=== PATIENT | male | born 1960 | race African-American/Black ===

== ENCOUNTER 2018-09-06 05:55 | Day surgery (SDC) | payer OTHER ==
[2018-08-31 11:56] VITALS: BMI 35.5
--- NOTE | 2018-09-06 06:52 | HP ---
History & Physical Update - History History: No Change - Physical Physical: No Change - Assessment Assessment: No Change - Plan Plan: No Change (Initial H&P was completed on 08/27/18. In his paper chart. No new complaints or medications. Here today for ACDF C3/4)
[2018-09-06] MEDS: oxyCODONE HCL 10 MG SUSTAINED ACTING TABLET PO STA ×2 (07:05→13:56)
[2018-09-06] MEDS ORDERED: GELATIN, ABSORBABLE 100 EACH SPONGE TP ONE (07:23)
[2018-09-06] MEDS ORDERED: THROMBIN (RECOMBINANT) 5,000 UNIT VIAL TP ONE (07:23)
[2018-09-06] MEDS ORDERED: LIDOCAINE 1%/EPI 1:100000 (20 ML MULTI DOSE VIAL) ONE (07:23)
[2018-09-06] MEDS ORDERED: GUM MASTIC/STORAX/MSAL/ALCOHOL 1 DRP DROPSBTL MC ONE (07:24)
[2018-09-06] MEDS ORDERED: GABAPENTIN 300 MG CAPSULE (FP) ONE (07:24)
[2018-09-06] MEDS: GABAPENTIN 300 MG CAPSULE (FP) PO STA ×2 (07:25→13:55)
[2018-09-06] MEDS ORDERED: SUCCINYLCHOLINE CHLORIDE 200 MG/10 ML VIAL ONE (07:45)
[2018-09-06] MEDS ORDERED: PROPOFOL 20 ML ONE ×9 (07:45→09:35)
[2018-09-06] MEDS ORDERED: DEXAMETHASONE SOD PHOSPHATE 4 MG/1 ML VIAL ONE (07:45)
[2018-09-06] MEDS ORDERED: fentaNYL CITRATE 250 MCG/5 ML VIAL ONE ×2 (07:45→08:55)
[2018-09-06] MEDS ORDERED: ONDANSETRON 4 MG/2 ML VIAL ONE ×2 (07:45→12:26)
[2018-09-06] MEDS ORDERED: LIDOCAINE HCL/PF 2% SDV 5ML VIAL ONE (07:45)
[2018-09-06] MEDS ORDERED: MIDAZOLAM HCL 2 MG/2 ML SINGLE DOSE VIAL ONE ×2 (08:04→08:15)
[2018-09-06] MEDS ORDERED: DEXAMETHASONE SOD PHOSPHATE/PF 10 MG/ML SDV ONE (08:04)
[2018-09-06] MEDS ORDERED: ROPIVACAINE HCL 0.5% 30ML VIAL ONE (08:04)
[2018-09-06] MEDS ORDERED: DESFLURANE GAS 240 ML BOTTLE IH ONE (08:59)
[2018-09-06] MEDS ORDERED: ePHEDrine SULFATE 50 MG/1 ML AMPULE ONE (09:18)
[2018-09-06] MEDS ORDERED: THROMBIN (BOVINE) 5,000 UNIT VIAL TP ONE (09:32)
[2018-09-06] MEDS ORDERED: oxyCODONE HCL 5 MG TABLET PO PRN (11:01)
[2018-09-06] MEDS ORDERED: diphenhydrAMINE HCL 25 MG CAPSULE (FP) PO PRN (11:01)
[2018-09-06] MEDS ORDERED: morphine SULFATE 4 MG/ML VIAL IVPUSH PRN (11:01)
[2018-09-06] MEDS ORDERED: ONDANSETRON 4 MG/2 ML VIAL IVPUSH PRN (11:01)
--- NOTE | 2018-09-06 11:01 | OP ---
Operative Note - Note: Operative Date: 09/06/18 Pre-Operative Diagnosis: Cervical stenosis, disc herniation at C3/4 Operation: C3/4 ACDF, allograft implant, neuromonitoring Post-Operative Diagnosis: Same as Pre-op Surgeon: Leroy Garcia Global Climate Change Analyst: Bryan Reyes Anesthesiologist/DEBEADER: Isi Pyle Anesthesia: General Specimens Removed: C3/4 disc Estimated Blood Loss (mls): 20 Fluid Volume Replaced (mls): 1,200 Operative Report Dictated: Yes
[2018-09-06] MEDS ORDERED: diazePAM 5 MG TABLET PO PRN (11:05)
[2018-09-06] MEDS ORDERED: HEPARIN NA (PORCINE) 5,000 UNITS/ML 1ML VIAL SQ SCH (11:15)
[2018-09-06] MEDS ORDERED: LACTATED RINGERS SOLUTION 1,000 ML/1,000 ML INFUS.BAG IV SCH (11:15)
[2018-09-06] MEDS: DOCUSATE SODIUM 100 MG CAPSULE (FP) PO SCH ×2 (15:00→21:09)
[2018-09-06] MEDS: DEXAMETHASONE SOD PHOSPHATE 4 MG/1 ML VIAL IVPUSH SCH ×2 (16:00→21:10)
[2018-09-06] MEDS ORDERED: PT OWN MED DRAWER 7, Y5N ONE (17:17)
[2018-09-06] MEDS: CEFAZOLIN 1 GM/D5W 1 GM/50 ML BAG IVPB SCH (17:20)
[2018-09-06] MEDS: oxyCODONE HCL 5 MG TABLET PO PRN (18:09)
[2018-09-06] MEDS: HEPARIN NA (PORCINE) 5,000 UNITS/ML 1ML VIAL SQ SCH (18:12)
[2018-09-06] MEDS ORDERED: ROSUVASTATIN CA 10 MG TABLET (FP) PO SCH (22:00)
[2018-09-07] MEDS: CEFAZOLIN 1 GM/D5W 1 GM/50 ML BAG IVPB SCH ×2 (01:00→10:18)
[2018-09-07] MEDS: HEPARIN NA (PORCINE) 5,000 UNITS/ML 1ML VIAL SQ SCH ×2 (03:00→10:30)
[2018-09-07] MEDS: DEXAMETHASONE SOD PHOSPHATE 4 MG/1 ML VIAL IVPUSH SCH ×2 (03:00→10:10)
[2018-09-07] MEDS: oxyCODONE HCL 5 MG TABLET PO PRN ×2 (04:58→10:11)
[2018-09-07] MEDS: DOCUSATE SODIUM 100 MG CAPSULE (FP) PO SCH (04:59)
[2018-09-07 06:32] VITALS: TEMP 98.6
[2018-09-07 07:59] LABS: HEMATOCRIT 45.8 % (35.4-49); HEMOGLOBIN 14.9 GM/dl (11.7-16.9); MCH 30.6 pg (25.7-33.7); MCHC 32.5 g/dl (32.0-35.9); MEAN CELL VOLUME 94.1 fl (80-96); MEAN PLT VOLUME 8.4 fl (7.5-11.1); PLATELET COUNT 288 K/MM3 (134-434); RBC 4.88 M/mm3 (4.00-5.60); RDW 12.5 % (11.9-15.9); WHITE BLOOD COUNT 20.1 K/mm3 (4.0-10.8)
[2018-09-07 08:03] LABS: ANION GAP 9 MMOL/L (8-16); BLOOD UREA NITROGEN 13 mg/dl (7-18); CALCIUM 9.1 mg/dl (8.5-10); CHLORIDE 104 mmol/L (98-107); CO2 24 mmol/L (21-32); CREATININE 1.1 mg/dl (0.55-1.3); GLUCOSE,RANDOM 158 mg/dl (74-106); POTASSIUM 3.9 mmol/L (3.5-5.1); SODIUM 137 mmol/L (136-145)
--- NOTE | 2018-09-07 09:00 | OP ---
DATE OF OPERATION: 09/06/2018 PREOPERATIVE DIAGNOSIS: Cervical stenosis, C3-4. POSTOPERATIVE DIAGNOSIS: Cervical stenosis, C3-4. PROCEDURE: 1. Anterior cervical diskectomy and fusion, C3-4. 2. Placement of instrumentation, C3-4. SURGEON: Leroy Garcia MD LOAD MANAGER: RYAN Saucedo ESTIMATED BLOOD LOSS: 50 mL. INTRAVENOUS FLUIDS: Per Anesthesia. ANESTHESIA: General/MCP block. COMPLICATIONS: None. DISPOSITION: Patient brought to the PACU in stable condition. INDICATIONS FOR SURGERY: The patient is a 58-year-old gentleman who has been suffering from pain from his neck down his arms as well as numbness and tingling. X-rays and MRI were completed which show that he had cervical stenosis at C3-4. He had gone through an exhaustive course of treatment for this which included medications, physical therapy as well as injections. Unfortunately, his pain continued to persist despite all of this. At this point, the risks, benefits and alternatives were discussed and the patient consented to surgery. DESCRIPTION OF PROCEDURE: The patient was brought to the operating room by the anesthesia staff. After appropriate patient identification was performed, general anesthesia was given. A MCP block was also given. The patient was placed supine on the OR bed. His arms were tucked at his side. All areas of bony prominence were well padded at this time. A needle was taped onto his neck to anita off the C3-4 level. X-rays were taken to confirm the site. The needle was removed and 10 mL of lidocaine with epinephrine were injected into his neck at this time. His neck was prepped and draped in a sterile manner. At this point, timeout was completed. A 2-inch Incision was made on the left side of his neck. Dissection was carried down to the platysma. The platysma was cut in line with the skin incision. Next, the interval between the sternocleidomastoid and strap muscles was developed. The interval between the carotid sheath and the tracheoesophagus was developed. A peanut was used to elevate off the prevertebral fascia. A needle was placed into the C3-4 disk. X-ray was taken to confirm the site. The needle was removed. The longus colli muscles were elevated off. A [place] pin was placed in the body of C3 and C4. A knife was used to incise the disk and retraction was applied. The microscope was brought in. At this point, using a pituitary Kerrison curette a diskectomy was completed. Endplates were decorticated at this time. A cage filled with bone graft was placed in. [place] pins were removed. A screw was placed in the body of C3 and placed in the body of C4. AP and lateral x-rays confirmed the instrumentation to be in good position. Final tightening was performed. A drain was placed. The platysma was closed with 2-0 Vicryl suture. Skin was closed with 3-0 Monocryl suture. Tegaderm was applied. Steri-Strips were applied. Sterile dressing was applied. Patient was placed supine on the bed, extubated in the OR and brought to the PACU in stable condition. Lidia [id number] MTDD
[2018-09-07] MEDS ORDERED: PATIENT'S OWN MEDICATION (NON-FORMULARY) (Vitamin E [Vitamin E] 1,000 UNIT) PO SCH (10:00)
[2018-09-07] MEDS ORDERED: FOLIC ACID 1 MG TABLET (FP) PO SCH (10:00)
[2018-09-07] MEDS ORDERED: VITAMIN K2 40 MCG PO SCH (10:00)
[2018-09-07] MEDS ORDERED: VITAMIN A 8000 UNIT PO SCH (10:00)
[2018-09-07] MEDS ORDERED: UBIDECARENONE 30 MG PO SCH (10:00)
--- NOTE | 2018-09-07 10:03 | PN ---
Progress Note (short form) - Note Progress Note: Post op day#1.S/P C3-C4 Disectomy with fusion under Ga with C4 TLIP block uneventful.Patient stable and has pain score of 2-3/10.No any anesthesia related problem.Patient Dc from the anesthesia care.
[2018-09-07 14:08] VITALS: BP 157/84; PULSE 66
--- NOTE | 2018-09-07 17:52 | PATH ---
Surgical Pathology Report Patient Name: GENTRY MURO [facility]. Rec. #: [id number] /Age/Gender: 1960 (Age: 58) / F Account: [id number] Location: [facility] [place] [facility] Taken: 09/06/2018 Received: 09/06/2018 Reported: 09/07/2018 Physicians: Leroy Garcia M.D. Specimen(s) Received C3/4 DISC Clinical History Cervical stenosis Final Diagnosis C3/C4 DISC, DISCECTOMY: CARTILAGINOUS TISSUE WITH DEGENERATIVE CHANGE. Electronically Signed Michael De La Rosa M.D. Gross Description Received in formalin labeled "disc C3/4," is a 2.5 x 2.3 x 0.3 cm aggregate of ochoa fragments of fibrocartilaginous tissue. A manufacturer's representative portion is submitted in one cassette. /09/06/2018 [facility]09/06/2018
== END 2018-09-07 14:02 | disposition home or self-care (01) ==
LOC: FASU 05:55 → FASUSAT 05:55 → EDSEX 11:15 → FM/S 12:45 → FASUSAT 09-07 14:02
PROVIDERS: ATTEND Orthopaedic Surgery Orthopaedic Surgery of the Spine
PROC: 0RG10A0 Fusion of Cervical Vertebral Joint with Interbody Fusion Device, Anterior Approach, Anterior Column, Open Approach (ICD-10-PCS; 2018-09-06)
PROC: 0RG10K0 Fusion of Cervical Vertebral Joint with Nonautologous Tissue Substitute, Anterior Approach, Anterior Column, Open Approach (ICD-10-PCS; 2018-09-06)
PROC: 0RB30ZZ Excision of Cervical Vertebral Disc, Open Approach (ICD-10-PCS; principal; 2018-09-06 09:24)
DX: M48.02 Spinal stenosis, cervical region (principal)
CPT/HCPCS: 22551; 22845; 22853; C1889; 36415; 72050-TC-FY; 80048; 85027; 88304-TC; 94760; 97116-GP; 97161-GP; J1644

== ENCOUNTER 2020-08-03 07:29 | Day surgery (SDC) | payer OTHER ==
[2020-07-30 10:03] VITALS: BMI 34.8
[2020-08-03 07:56] LABS: BASO % 1.4 % (0-2.0); EOS % 4.1 % (0-4.5); HEMATOCRIT 46.5 % (35.4-49); HEMOGLOBIN 16.1 GM/dl (11.7-16.9); LYMPH % 26.1 % (8-40); MCH 32.5 pg (25.7-33.7); MCHC 34.6 g/dl (32.0-35.9); MEAN CELL VOLUME 94.1 fl (80-96); MEAN PLT VOLUME 8.3 fl (7.5-11.1); MONO % 6.7 % (3.8-10.2); NEUT % 61.7 % (42.8-82.8); PLATELET COUNT 267 K/MM3 (134-434); RBC 4.94 M/mm3 (4.00-5.60); RDW 13.1 % (11.9-15.9); WHITE BLOOD COUNT 12.2 K/mm3 (4.0-10.8)
[2020-08-03 08:29] VITALS: BP 157/101; PULSE 57; TEMP 98.2
[2020-08-03] MEDS ORDERED: BUPIVACAINE LIPOSOME/PF (EXPAREL) 266 MG/20 ML VIAL ONE (08:45)
[2020-08-03] MEDS ORDERED: MIDAZOLAM HCL 2 MG/2 ML SINGLE DOSE VIAL ONE (08:45)
[2020-08-03] MEDS ORDERED: SODIUM CHLORIDE 0.9% P/F 10 ML VIAL IJ ONE (08:45)
== END 2020-08-03 08:35 | disposition home or self-care (01) ==
LOC: FASUSAT 07:29 → UNDOADMIN 07:29 → FM/S 07:29 → UNDODISIN 08:35 → FASUSAT 08:35 → EDSTATUS 09:30 → FASUSAT 12:45
PROVIDERS: ATTEND Orthopaedic Surgery Sports Medicine
DX: Z53.8 Procedure and treatment not carried out for other reasons (principal)
CPT/HCPCS: 36415; 85025

== ENCOUNTER 2020-08-17 05:57 | Inpatient (IN) | payer OTHER ==
[2020-08-11 12:57] VITALS: BMI 34.8
[2020-08-17] MEDS ORDERED: SODIUM CHLORIDE 0.9% P/F 10 ML VIAL IJ ONE (06:47)
[2020-08-17] MEDS ORDERED: MIDAZOLAM HCL 2 MG/2 ML SINGLE DOSE VIAL ONE ×4 (06:47→09:08)
[2020-08-17] MEDS ORDERED: BUPIVACAINE LIPOSOME/PF (EXPAREL) 266 MG/20 ML VIAL ONE (06:47)
[2020-08-17] MEDS ORDERED: TRANEXAMIC ACID 1000 MG/10 ML VIAL ONE (07:32)
[2020-08-17] MEDS ORDERED: ATROPINE SULFATE 1 MG/10 ML DISP.SYRIN ONE (07:33)
[2020-08-17] MEDS ORDERED: SUCCINYLCHOLINE CHLORIDE 200 MG/10 ML SYRINGE ONE (07:34)
[2020-08-17] MEDS ORDERED: EPHEDRINE SULFATE/0.9% NACL/PF 50 MG/10 ML SYRINGE NR ONE (07:34)
[2020-08-17] MEDS ORDERED: PROPOFOL 20 ML ONE ×3 (07:34→08:54)
[2020-08-17] MEDS ORDERED: VANCOMYCIN 1,000 MG VIAL (RESTRICTED TO ID ONLY) ONE (07:48)
[2020-08-17] MEDS ORDERED: ONDANSETRON 4 MG/2 ML VIAL IVPUSH PRN ×2 (10:28→14:53)
[2020-08-17] MEDS ORDERED: oxyCODONE HCL 5 MG TABLET PO PRN (10:28)
[2020-08-17] MEDS ORDERED: BUPIVICAINE 0.25%/MORPH PF/KETOROLAC - 51ML DISP.SYRINGE IA ONE (10:44)
[2020-08-17] MEDS: oxyCODONE HCL 5 MG TABLET PO PRN ×2 (14:33→21:19)
[2020-08-17] MEDS ORDERED: MAG HYDROX/AL HYDROX/SIMETH 30 ML UNIT-DOSE CUP PO PRN (14:53)
[2020-08-17] MEDS ORDERED: LACTATED RINGERS SOLUTION 1,000 ML IV SCH (15:00)
[2020-08-17] MEDS: CEFAZOLIN 2 GM/D5W 2 GM/50 ML ML IVPB SCH (16:15)
[2020-08-17] MEDS: INSULIN SLIDING SCALE (NOVOLOG) 1 VIAL SQ SCH ×2 (16:50→22:32)
[2020-08-17] MEDS: GABAPENTIN 300 MG CAPSULE PO SCH (21:19)
[2020-08-17] MEDS: ROSUVASTATIN CA 10 MG TABLET (FP) PO SCH (21:19)
[2020-08-17] MEDS: oxyCODONE HCL 10 MG SUSTAINED ACTING TABLET PO SCH (21:20)
[2020-08-17] MEDS: SENNOSIDES/DOCUSATE COMBO (SENNA PLUS) TABLET (UD) PO SCH (21:20)
[2020-08-18] MEDS: CEFAZOLIN 2 GM/D5W 2 GM/50 ML ML IVPB SCH ×2 (01:00→09:10)
[2020-08-18] MEDS: oxyCODONE HCL 5 MG TABLET PO PRN ×4 (04:33→21:21)
[2020-08-18] MEDS: INSULIN SLIDING SCALE (NOVOLOG) 1 VIAL SQ SCH ×4 (08:00→22:42)
[2020-08-18 08:24] LABS: BASO % 1.4 % (0-2.0); EOS % 0.1 % (0-4.5); HEMATOCRIT 39.7 % (35.4-49); HEMOGLOBIN 12.8 GM/dl (11.7-16.9); MCH 30.8 pg (25.7-33.7); MCHC 32.2 g/dl (32.0-35.9); MEAN CELL VOLUME 95.5 fl (80-96); MEAN PLT VOLUME 8.7 fl (7.5-11.1); MONO % 6.8 % (3.8-10.2); NEUT % 76.7 % (42.8-82.8); PLATELET COUNT 254 K/MM3 (134-434); RBC 4.16 M/mm3 (4.00-5.60); RDW 13.4 % (11.9-15.9); WHITE BLOOD COUNT 15.3 K/mm3 (4.0-10.8)
[2020-08-18 08:35] LABS: ALBUMIN 3.4 g/dl (3.4-5.0); BILIRUBIN,TOTAL 0.6 mg/dl (0.2-1); CALCIUM 8.6 mg/dl (8.5-10); MAGNESIUM 1.9 mg/dL (1.8-2.4); POTASSIUM 4.1 mmol/L (3.5-5.1)
[2020-08-18] MEDS ORDERED: KETOROLAC TROMETHAMINE 30 MG/1 ML VIAL IVPUSH ONE (08:45)
[2020-08-18] MEDS: MULTIVITAMINS (DAILY MVI) TABLET (FP) PO SCH (09:17)
[2020-08-18] MEDS: oxyCODONE HCL 10 MG SUSTAINED ACTING TABLET PO SCH ×2 (09:18→21:20)
[2020-08-18] MEDS: PANTOPRAZOLE 40 MG TABLET PO SCH (09:19)
[2020-08-18] MEDS: GABAPENTIN 300 MG CAPSULE PO SCH ×2 (09:19→21:20)
[2020-08-18] MEDS: ASPIRIN 325 MG TABLET PO SCH ×2 (09:20→21:20)
[2020-08-18] MEDS: SENNOSIDES/DOCUSATE COMBO (SENNA PLUS) TABLET (UD) PO SCH ×2 (09:20→21:20)
[2020-08-18] MEDS: ROSUVASTATIN CA 10 MG TABLET (FP) PO SCH (21:22)
[2020-08-19] MEDS: oxyCODONE HCL 5 MG TABLET PO PRN ×2 (05:59→15:14)
[2020-08-19] MEDS: INSULIN SLIDING SCALE (NOVOLOG) 1 VIAL SQ SCH ×2 (06:00→11:56)
[2020-08-19] MEDS: ASPIRIN 325 MG TABLET PO SCH (09:19)
[2020-08-19] MEDS: GABAPENTIN 300 MG CAPSULE PO SCH (09:19)
[2020-08-19] MEDS: MULTIVITAMINS (DAILY MVI) TABLET (FP) PO SCH (09:19)
[2020-08-19] MEDS: SENNOSIDES/DOCUSATE COMBO (SENNA PLUS) TABLET (UD) PO SCH (09:19)
[2020-08-19] MEDS: oxyCODONE HCL 10 MG SUSTAINED ACTING TABLET PO SCH (09:20)
[2020-08-19] MEDS: PANTOPRAZOLE 40 MG TABLET PO SCH (09:30)
[2020-08-19 14:18] VITALS: BP 113/54; PULSE 87; TEMP 98.9
== END 2020-08-19 15:53 | disposition home or self-care (01) | DRG 470 ==
LOC: FM/S 05:57
PROVIDERS: ADMIT Orthopaedic Surgery Sports Medicine; ATTEND Nurse Practitioner Acute Care
PROC: 8E0Y0CZ Robotic Assisted Procedure of Lower Extremity, Open Approach (ICD-10-PCS; 2020-08-17)
PROC: 0SRC0JZ Replacement of Right Knee Joint with Synthetic Substitute, Open Approach (ICD-10-PCS; principal; 2020-08-17 08:43)
DX: M17.11 Unilateral primary osteoarthritis, right knee (principal); I10 Essential (primary) hypertension; E78.5 Hyperlipidemia, unspecified; E11.9 Type 2 diabetes mellitus without complications
CPT/HCPCS: 36415; 73560-TC-RT-FY; 80048; 80053; 82962; 83735; 85025; 94760; 97010-GP; 97116-GP; 97162-GP

== ENCOUNTER 2020-12-21 05:59 | Inpatient (IN) | payer OTHER ==
[2020-12-17 11:50] VITALS: BMI 35.6
[~2020-12-21 05:59] MED LIST: BUPIVICAINE 0.25%/MORPH PF/KETOROLAC - 51ML DISP.SYRINGE IA ONE; VANCOMYCIN 1,000 MG VIAL (RESTRICTED TO ID ONLY) IVPB ONE
[2020-12-21] MEDS ORDERED: fentaNYL CITRATE 250 MCG/5 ML VIAL ONE (07:15)
[2020-12-21] MEDS ORDERED: PROPOFOL 20 ML ONE ×7 (07:16→09:27)
[2020-12-21] MEDS ORDERED: BUPIVACAINE HCL 50 ML ONE (07:22)
[2020-12-21] MEDS ORDERED: VANCOMYCIN 1,000 MG VIAL (RESTRICTED TO ID ONLY) ONE ×2 (07:25→08:25)
[2020-12-21] MEDS ORDERED: MIDAZOLAM HCL 2 MG/2 ML SINGLE DOSE VIAL ONE ×3 (07:34→08:11)
[2020-12-21] MEDS ORDERED: ROPIVACAINE HCL 0.5% 30ML VIAL ONE (07:34)
[2020-12-21] MEDS ORDERED: SODIUM CHLORIDE 0.9% P/F 10 ML VIAL IJ ONE (07:42)
[2020-12-21] MEDS ORDERED: BUPIVACAINE HCL/PF 0.5% (5 MG/ML) 30 ML VIAL IJ ONE (07:42)
[2020-12-21] MEDS ORDERED: BUPIVACAINE LIPOSOME/PF (EXPAREL) 266 MG/20 ML VIAL ONE (07:42)
[2020-12-21] MEDS ORDERED: ePHEDrine SULFATE 50 MG/1 ML AMPULE ONE ×2 (08:25→08:52)
[2020-12-21] MEDS ORDERED: TRANEXAMIC ACID 1000 MG/10 ML VIAL ONE ×2 (08:25→10:28)
[2020-12-21] MEDS ORDERED: ceFAZolin SODIUM 1 GM VIAL ONE (08:25)
[2020-12-21] MEDS ORDERED: BUPIVICAINE 0.25%/MORPH PF/KETOROLAC - 51ML DISP.SYRINGE IA ONE ×2 (10:30→11:00)
[2020-12-21] MEDS ORDERED: VANCOMYCIN 1,000 MG VIAL (RESTRICTED TO ID ONLY) IVPB ONE (10:31)
[2020-12-21] MEDS ORDERED: ONDANSETRON 4 MG/2 ML VIAL ONE (11:05)
[2020-12-21] MEDS ORDERED: MAG HYDROX/AL HYDROX/SIMETH 30 ML UNIT-DOSE CUP PO PRN (11:26)
[2020-12-21] MEDS ORDERED: ONDANSETRON 4 MG/2 ML VIAL IVPUSH PRN ×2 (11:26→11:48)
[2020-12-21] MEDS ORDERED: LACTATED RINGERS SOLUTION 1,000 ML IV SCH ×2 (11:30→12:00)
[2020-12-21] MEDS ORDERED: ACETAMINOPHEN 1000 MG/100 ML VIAL (NON FORMULARY) IVPB ONE (11:48)
[2020-12-21] MEDS ORDERED: traMADol HCL 50 MG TABLET PO PRN (11:48)
[2020-12-21] MEDS ORDERED: oxyCODONE HCL 5 MG TABLET PO PRN (11:48)
[2020-12-21] MEDS ORDERED: REFRIGERATED ANITBIOTICS ONE ×2 (15:29→23:44)
[2020-12-21] MEDS: oxyCODONE HCL 5 MG TABLET PO PRN ×2 (15:33→20:09)
[2020-12-21] MEDS: CEFAZOLIN 3 GM in DEXTROSE 5%-WATER - 100 ML IVPB SCH ×2 (15:35→23:51)
[2020-12-21] MEDS ORDERED: CEFAZOLIN 3 GM in DEXTROSE 5%-WATER - 100 ML IVPB SCH (16:00)
[2020-12-21] MEDS: ATORVASTATIN CA 20 MG TABLET (FP) PO SCH (21:21)
[2020-12-21] MEDS: GABAPENTIN 300 MG CAPSULE PO SCH (21:21)
[2020-12-21] MEDS: SENNOSIDES/DOCUSATE COMBO (SENNA PLUS) TABLET (UD) PO SCH (21:21)
[2020-12-22] MEDS: oxyCODONE HCL 5 MG TABLET PO PRN ×5 (02:05→18:42)
[2020-12-22] MEDS ORDERED: REFRIGERATED ANITBIOTICS ONE (08:00)
[2020-12-22] MEDS: CEFAZOLIN 3 GM in DEXTROSE 5%-WATER - 100 ML IVPB SCH (08:16)
[2020-12-22 08:30] LABS: CALCIUM 8.1 mg/dl (8.5-10); CREATININE 0.8 mg/dl (0.55-1.3)
[2020-12-22] MEDS ORDERED: KETOROLAC TROMETHAMINE 30 MG/1 ML VIAL IVPUSH PRN (08:39)
[2020-12-22] MEDS ORDERED: CYCLOBENZAPRINE HCL 10 MG TABLET (FP) PO PRN (08:42)
[2020-12-22] MEDS: ACETAMINOPHEN 325 MG TABLET (FP) PO SCH ×3 (08:46→21:25)
[2020-12-22 08:57] LABS: HEMATOCRIT 37.7 % (35.4-49); HEMOGLOBIN 12.7 GM/dl (11.7-16.9); MCHC 33.8 g/dl (32.0-35.9); MEAN CELL VOLUME 88.7 fl (80-96); MEAN PLT VOLUME 8.3 fl (7.5-11.1); PLATELET COUNT 243 10^3/uL (134-434); RBC 4.25 M/mm3 (4.00-5.60); RDW 14.9 % (11.9-15.9); WHITE BLOOD COUNT 12.2 K/mm3 (4.0-10.8)
[2020-12-22] MEDS: ASPIRIN 325 MG TABLET PO SCH ×2 (09:40→21:25)
[2020-12-22] MEDS: PANTOPRAZOLE 40 MG TABLET PO SCH (09:40)
[2020-12-22] MEDS: SENNOSIDES/DOCUSATE COMBO (SENNA PLUS) TABLET (UD) PO SCH ×2 (09:40→21:25)
[2020-12-22] MEDS: GABAPENTIN 300 MG CAPSULE PO SCH ×2 (09:40→21:25)
[2020-12-22] MEDS: MULTIVITAMINS (DAILY MVI) TABLET (FP) PO SCH (09:40)
[2020-12-22] MEDS: oxyCODONE HCL 10 MG SUSTAINED ACTING TABLET PO SCH ×2 (09:40→21:24)
[2020-12-22] MEDS ORDERED: oxyCODONE HCL 10 MG SUSTAINED ACTING TABLET PO SCH (10:00)
[2020-12-22] MEDS: ATORVASTATIN CA 20 MG TABLET (FP) PO SCH (21:24)
[2020-12-23] MEDS: ACETAMINOPHEN 325 MG TABLET (FP) PO SCH ×3 (02:08→15:00)
[2020-12-23] MEDS: oxyCODONE HCL 5 MG TABLET PO PRN ×4 (02:13→15:55)
[2020-12-23 08:51] LABS: HEMATOCRIT 35.9 % (35.4-49); HEMOGLOBIN 12.1 GM/dl (11.7-16.9); MCH 30.1 pg (25.7-33.7); MCHC 33.7 g/dl (32.0-35.9); MEAN CELL VOLUME 89.6 fl (80-96); MEAN PLT VOLUME 8.8 fl (7.5-11.1); PLATELET COUNT 217 10^3/uL (134-434); RDW 14.8 % (11.9-15.9); WHITE BLOOD COUNT 14.1 K/mm3 (4.0-10.8)
[2020-12-23] MEDS: oxyCODONE HCL 10 MG SUSTAINED ACTING TABLET PO SCH (10:13)
[2020-12-23] MEDS: ASPIRIN 325 MG TABLET PO SCH (10:13)
[2020-12-23] MEDS: GABAPENTIN 300 MG CAPSULE PO SCH (10:13)
[2020-12-23] MEDS: MULTIVITAMINS (DAILY MVI) TABLET (FP) PO SCH (10:14)
[2020-12-23] MEDS: SENNOSIDES/DOCUSATE COMBO (SENNA PLUS) TABLET (UD) PO SCH (10:14)
[2020-12-23] MEDS: PANTOPRAZOLE 40 MG TABLET PO SCH (10:14)
[2020-12-23 14:52] VITALS: BP 137/71; PULSE 102; TEMP 99.7
== END 2020-12-23 16:59 | disposition home or self-care (01) | DRG 470 ==
LOC: FM/S 05:59
PROVIDERS: ADMIT Orthopaedic Surgery Sports Medicine; ATTEND Nurse Practitioner Acute Care
PROC: 0SRD0JZ Replacement of Left Knee Joint with Synthetic Substitute, Open Approach (ICD-10-PCS; principal; 2020-12-21 08:50)
DX: M17.12 Unilateral primary osteoarthritis, left knee (principal); I10 Essential (primary) hypertension; E78.5 Hyperlipidemia, unspecified; E11.9 Type 2 diabetes mellitus without complications
CPT/HCPCS: 36415; 73560-TC-LT-FY; 80048; 85027; 88305-TC; 88311-TC; 94760; 97010-GP; 97116-GP; 97161-GP; J0131